=== PATIENT | male | born 1970 | race Caucasian/White ===

== ENCOUNTER 2021-03-21 11:33 | Emergency (ER) | payer OTHER, SELFPAY ==
[~2021-03-21] VITALS: Ht 198.1 cm; Wt 106.6 kg
[~2021-03-21 11:33] MED LIST: GLYB5TAB4 PO
[2021-03-21 11:38] VITALS: BP_SYST 144
--- NOTE | 2021-03-21 11:45 | NUR ---
ER DR. JOY AT THE BEDSIDE EXAMINING PT
--- NOTE | 2021-03-21 11:45 | NUR ---
Patient to ER bed 7 to gown for evaluation. Side rails up.
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
--- NOTE | 2021-03-21 12:14 | NUR ---
US AT THE BEDSIDE
[2021-03-21 12:49] LABS: BASOPHILS % (AUTO) 0.6 % (0.0-2.0); EOSINOPHILS # (AUTO) 0.4 K/uL (0.0-0.4); EOSINOPHILS % (AUTO) 4.3 % (0.0-4.0); HEMATOCRIT 40.7 % (36-54); HEMOGLOBIN 14.2 g/dL (14.0-18.0); LYMPHOCYTES # (AUTO) 1.3 K/uL (1.0-5.5); LYMPHOCYTES % (AUTO) 15.3 % (20.5-51.5); MEAN CORPUSCULAR HEMOGLOBIN 30 pg (27-31); MEAN CORPUSCULAR HGB CONC 35 % (32-36); MEAN CORPUSCULAR VOLUME 86 fL (79.0-98.0); MONOCYTES # (AUTO) 0.7 K/uL (0.0-1.0); MONOCYTES % (AUTO) 8.2 % (1.7-9.3); NEUTROPHILS % (AUTO) 71.6 % (40.0-70.0); PLATELET COUNT (AUTO) 220 K/uL (130-430); RED BLOOD CELL COUNT(AUTO) 4.74 MIL/uL (4.2-6.2); RED CELL DISTRIBUTION WIDTH 12.1 % (9.0-15.0); WHITE BLOOD COUNT (AUTO) 8.4 K/uL (4.8-10.8)
[2021-03-21 13:05] LABS: CALCIUM 8.7 mg/dL (8.4-11.0); CREATININE 0.69 mg/dL (0.55-1.30); POTASSIUM 3.9 mmol/L (3.5-5.1)
[2021-03-21 13:10] LABS: ALBUMIN 2.6 g/dL (3.4-4.8); TOTAL BILIRUBIN 0.6 mg/dL (0.0-1.0)
[2021-03-21] MEDS ORDERED: POTA-197 PO (13:14)
[2021-03-21] MEDS ORDERED: FURO-149 PO (13:14)
[2021-03-21 13:56] VITALS: BP_SYST 144
--- NOTE | 2021-03-21 13:57 | NUR ---
Patient given written and verbal discharge instructions and verbalizes understanding. ER MD discussed with patient the results and treatment provided. Patient in stable condition. ID arm band removed. Rx of LASIX AND K-DUR given. Patient educated on pain management and to follow up with PMD. Pain Scale 0/10. Opportunity for questions provided and answered. Medication side effect fact sheet provided.
== END 2021-03-21 13:57 | disposition home or self-care (01) ==
LOC: SED 11:33
DX: R60.0 Localized edema (principal); E11.9 Type 2 diabetes mellitus without complications; Z79.899 Other long term (current) drug therapy
CPT/HCPCS: 36415; 80053; 83880; 85025; 85379; 93971; 99284